=== PATIENT | female | born 1955 ===

== ENCOUNTER 2017-09-16 16:17 | Outpatient (CLI) | payer OTHER ==
[~2017-09-16 16:17] MED LIST: Iopamidol 370 76% 100 ML VIAL ONE
== END 2017-09-16 16:18 | disposition home or self-care (01) ==
LOC: BICCT 16:17
PROVIDERS: ATTEND Internal Medicine Sleep Medicine
DX: R59.1 Generalized enlarged lymph nodes (principal); R91.8 Other nonspecific abnormal finding of lung field
CPT/HCPCS: 71260